=== PATIENT | male | born 1990 | race African-American/Black ===

== ENCOUNTER 2018-10-04 16:57 | Day surgery (SDC) | payer OTHER ==
[2018-10-04] MEDS ORDERED: NORMAL SALINE 1000 ML 1,000 ML IV ONE (17:42)
--- NOTE | 2018-10-04 17:42 | ER Document Report ---
ED Medical Screen (RME) - General Chief Complaint: Lower Abdominal Pain Stated Complaint: ABDOMINAL PAIN Time Seen by Provider: 10/04/18 17:39 Mode of Arrival: Ambulatory Information source: Patient Notes: 27-year-old male presented to ED for right lower quadrant tenderness with rebound tenderness. He is nauseated no vomiting no fever. When I assessed him in the emergency room his temperature is 99.8. He states he has not eaten since last night due to the pain. Patient denies any smoking drinking or any drugs. He is alert oriented respirations regular and unlabored. I have greeted and performed a rapid initial assessment of this patient. A comprehensive ED assessment and evaluation of the patient, analysis of test results and completion of medical decision making process will be conducted by an additional ED providers. Dictation of this chart was performed using voice recognition software; therefore, there may be some unintended grammatical errors. TRAVEL OUTSIDE OF THE [place] IN LAST 30 DAYS: No - Related Data Allergies/Adverse Reactions: No Known Allergies Allergy (Verified 10/04/18 17:26)
[2018-10-04 18:23] LABS: APPEARANCE,URINE CLEAR; BILIRUBIN,URINE NEGATIVE (NEGATIVE); COLOR,URINE YELLOW; GLUCOSE, URINE NEGATIVE (NEGATIVE); KETONES,URINE NEGATIVE (NEGATIVE); LEUKOCYTE ESTERASE,URINE NEGATIVE (NEGATIVE); NITRITE,URINE NEGATIVE (NEGATIVE); PROTEIN,URINE NEGATIVE (NEGATIVE); URINE SPECIFIC GRAVITY 1.021; UROBILINOGEN,URINE NEGATIVE mg/dL (<2.0)
[2018-10-04 18:36] LABS: ABSOLUTE LYMPHOCYTES (AUTO) 1.2 10^3/uL (0.5-4.7); ABSOLUTE NEUT (AUTO) 7.9 10^3/uL (1.7-8.2); BASOPHILS % (AUTO) 0.2 % (0-2); EOSINOPHILS % (AUTO) 0.4 % (0-6); HEMATOCRIT 41.9 % (37.9-51.0); HEMOGLOBIN 13.6 g/dL (13.5-17.0); LYMPHOCYTES % (AUTO) 12.2 % (13-45); MEAN CORPUSCULAR HEMOGLOBIN 26.6 pg (27.0-33.4); MEAN CORPUSCULAR HGB CONC 32.4 g/dL (32.0-36.0); MEAN CORPUSCULAR VOLUME 82 fl (80-97); MONOCYTES % (AUTO) 9.9 % (3-13); PLATELET COUNT 259 10^3/uL (150-450); RED CELL DISTRIBUTION WIDTH 13.8 % (11.5-14.0); SEGMENTED NEUTROPHILS % (AUTO) 77.3 % (42-78); TOTAL CELLS COUNTED % (AUTO) 100 %; WHITE BLOOD COUNT 10.2 10^3/uL (4.0-10.5)
[2018-10-04 19:06] LABS: ALANINE AMINOTRANSFERASE 23 U/L (21-72); ALBUMIN 5.3 g/dL (3.5-5.0); ALKALINE PHOSPHATASE 65 U/L (38-126); ANION GAP 14 (5-19); ASPARTATE AMINO TRANSFERASE 21 U/L (17-59); BILIRUBIN,DIRECT 0.3 mg/dL (0.0-0.4); BILIRUBIN,TOTAL 0.9 mg/dL (0.2-1.3); BLOOD UREA NITROGEN 11 mg/dL (7-20); CALCIUM 10.5 mg/dL (8.4-10.2); CARBON DIOXIDE 25 mmol/L (22-30); CHLORIDE 103 mmol/L (98-107); GLUCOSE 84 mg/dL (75-110); POTASSIUM 4.3 mmol/L (3.6-5.0); SODIUM 141.8 mmol/L (137-145); TOTAL PROTEIN 8.7 g/dL (6.3-8.2)
--- NOTE | 2018-10-04 19:46 | ER Document Report ---
ED General - General Chief Complaint: Lower Abdominal Pain Stated Complaint: ABDOMINAL PAIN Time Seen by Provider: 10/04/18 17:39 Mode of Arrival: Ambulatory Notes: Patient is a 27-year-old male, previously healthy that presents to the emergency department for chief complaint of right lower quadrant abdominal pain. Patient reports that his pain started earlier this morning, and progressed throughout the course of the day, try to go to work but at around noon he had to leave because of the pain. He said associated nausea but no vomiting. He currently rates his pain as a 6 out of 10 describes it as a sharp stabbing pain in his right lower quadrant. He states is worse with any movement. He denies having any fevers, chills, night sweats, chest pain, shortness of breath or difficulty breathing. Denies any dysuria or hematuria. Past Medical History: Denies chronic medical conditions Past Surgical History: Denies surgical history Social History: Denies tobacco use, admits to occasional alcohol use, denies illicit drug use. Family History: Reviewed and noncontributory for presenting illness Allergies: Reviewed, see documented allergy list. REVIEW OF SYSTEMS: Other than noted above, the 12 point review of systems was reviewed with the patient and were negative, all pertinent findings are included in the HPI. PHYSICAL EXAMINATION: Vital signs reviewed, nursing noted reviewed. GENERAL: Patient appears uncomfortable on exam, but in no acute distress HEAD: Atraumatic, normocephalic. EYES: Eyes appear normal, extraocular movements intact, sclera anicteric, conjunctiva are normal. ENT: nares patent, oropharynx clear without exudates. Moist mucous membranes. NECK: Normal range of motion, supple without lymphadenopathy LUNGS: Breath sounds clear to auscultation bilaterally and equal. No wheezes rales or rhonchi. HEART: Regular rate and rhythm without murmurs ABDOMEN: Soft, right lower quadrant tenderness palpation, without rigidity, however the patient does have rebound tenderness, normoactive bowel sounds. No distention noted. EXTREMITIES: Nontender, good range of motion, no pitting or edema. NEUROLOGICAL: No focal neurological deficits. Moves all extremities spontaneou sly Motor and sensory grossly intact on exam. PSYCH: Normal mood, normal affect. SKIN: Warm, Dry, normal turgor, no rashes or lesions noted on exposed skin TRAVEL OUTSIDE OF THE [place] IN LAST 30 DAYS: No - Related Data Allergies/Adverse Reactions: No Known Allergies Allergy (Verified 10/04/18 17:26) Past Medical History - General Information source: Patient - Social History Smoking Status: Never Smoker Chew tobacco use (# tins/day): No Frequency of alcohol use: None Drug Abuse: None Family History: Reviewed & Not Pertinent Patient has suicidal ideation: No Patient has homicidal ideation: No Renal/ Medical History: Denies: Hx Peritoneal Dialysis Physical Exam - Vital signs Vitals: Temp Pulse Resp BP Pulse Ox 99.8 F 80 16 116/62 100 10/04/18 17:37 10/04/18 17:37 10/04/18 17:37 10/04/18 17:37 10/04/18 17:37 Course - Re-evaluation Re-evalutation: Patient seen and examined vital signs reviewed. Laboratory data and imaging were ordered as appropriate for the patient's pre senting symptoms and complaint, with consideration of any critical or life threatening conditions that may be associated with their obtained history and exam as noted above. Patient was treated with IV fluids, Zofran, morphine, and started on IV Zosyn after reviewing CT scan that demonstrated acute appendicitis. Blood work was reviewed and essentially unremarkable, patient was given IV fluids. The patient was re-evaluated and was stable Evaluation was most consistent with acute appendicitis, call was placed to the surgeon, he was currently in the OR, discussed with the OR nurse, and I am w aiting for callback to discuss the case with Dr. Perez. Discussed case with the surgeon, he wished to have the patient started on IV Levaquin, and Flagyl, and will take the patient to the OR after he finishes his next case. Results were discussed with the patient at this point after careful conside ration I feel that that patient should be admitted to the hospital. This was discussed with the patient that it is in the best interest for their care to be admitted for further evaluation and management. Patient agreed with this plan of care. A call was placed to the admitted physician, Dr. Perez who graciously accepted the patient onto their service. *Note is created using voice recognition software and may contain spelling, syntax or grammatical errors. Laboratory 10/04/18 10/04/18 10/04/18 17:45 17:52 17:52 WBC 10.2 RBC 5.10 Hgb 13.6 Hct 41.9 MCV 82 MCH 26.6 L MCHC 32.4 RDW 13.8 Plt Count 259 Seg Neutrophils % 77.3 Lymphocytes % 12.2 L Monocytes % 9.9 Eosinophils % 0.4 Basophils % 0.2 Absolute Neutrophils 7.9 Absolute Lymphocytes 1.2 Absolute Monocytes 1.0 Absolute Eosinophils 0.0 Absolute Basophils 0.0 Sodium 141.8 Potassium 4.3 Chloride 103 Carbon Dioxide 25 Anion Gap 14 BUN 11 Creatinine 0.86 Est GFR ( Amer) > 60 Est GFR (Non-Af Amer) > 60 Glucose 84 Calcium 10.5 H Total Bilirubin 0.9 Direct Bilirubin 0.3 Neonat Total Bilirubin Not Reportable Neonat Direct Bilirubin Not Reportable Neonat Indirect Bili Not Reportable AST 21 ALT 23 Alkaline Phosphatase 65 Total Protein 8.7 H Albumin 5.3 H Urine Color YELLOW Urine Appearance CLEAR Urine pH 6.0 Ur Specific [place] 1.021 Urine Protein NEGATIVE Urine Glucose (UA) NEGATIVE Urine Ketones NEGATIVE Urine Blood NEGATIVE Urine Nitrite NEGATIVE Urine Bilirubin NEGATIVE Urine Urobilinogen NEGATIVE Ur Leukocyte Esterase NEGATIVE Urine RBC (Auto) 0 Squamous Epi Cells Auto <1 Urine Mucus (Auto) RARE Urine Ascorbic Acid NEGATIVE Abdomen/Pelvis CT 10/04/18 17:42 IMPRESSION: Appendicitis. There is no abscess. - Vital Signs Vital signs: Temp Pulse Resp BP Pulse Ox 99.8 F 80 16 116/62 100 10/04/18 17:37 10/04/18 17:37 10/04/18 17:37 10/04/18 17:37 10/04/18 17:37 - Laboratory Result Diagrams: 10/04/18 17:52 10/04/18 17:52 Laboratory results interpreted by me: 10/04/18 10/04/18 17:52 17:52 MCH 26.6 L Lymphocytes % 12.2 L Calcium 10.5 H Total Protein 8.7 H Albumin 5.3 H Discharge - Discharge Clinical Impression: Acute appendicitis Qualifiers: Acute appendicitis type: with localized peritonitis Appendicitis gangrene presence: unspecified whether gangrene present Appendicitis perforation presence: without perforation Appendicitis abscess presence: without abscess Qualified Code(s): K35.30 - Acute appendicitis with localized peritonitis, without perforation or gangrene Condition: Stable Disposition: ADMITTED INPATIENT Admitting Provider: Surgicalist - Dr. Perez Unit Admitted: OR
[2018-10-04] MEDS ORDERED: PIPERACILLIN/TAZOBACTAM 3.375 GM VIAL IV ONE (19:52)
[2018-10-04] MEDS ORDERED: RINGERS SOLUTION,LACTATED 1,000 ML IV ONE (19:53)
[2018-10-04] MEDS ORDERED: MORPHINE SULFATE 10 MG/ML INJ IV ONE (19:53)
[2018-10-04] MEDS ORDERED: ONDANSETRON HCL INJ/PF 4 MG/2 ML SDV IV ONE (19:53)
--- NOTE | 2018-10-04 20:10 | RADIOLOGY REPORT (SQ) ---
EXAM DESCRIPTION: CT ABD/PELVIS WITH IV ONLY COMPLETED DATE/TIME: 10/04/2018 7:32 pm REASON FOR STUDY: rlq abdominal pain with rebound tenderness COMPARISON: None. TECHNIQUE: CT scan of the abdomen and pelvis performed using helical scanning technique with dynamic intravenous contrast injection. No oral contrast. Images reviewed with lung, soft tissue, and bone windows. Reconstructed coronal and sagittal MPR images reviewed. Delayed images for evaluation of the urinary system also acquired. All images stored on PACS. All CT scanners at this facility use dose modulation, iterative reconstruction, and/or weight based d osing when appropriate to reduce radiation dose to as low as reasonably achievable (ALARA). [facility]: Dose Right [facility]: CareDose [facility]: Dose Right [facility]: Teradose 4D [facility]: Ticket Cake CONTRAST TYPE AND DOSE: contrast/concentration: Isovue 350.00 mg/ml; Total Contrast Delivered: 100.0 ml; Total Saline Delivered: 72.0 ml RENAL FUNCTION: None required. The patient is less than 50 years old. RADIATION DOSE: CT Rad equipment meets quality standard of care and radiation dose reduction techniq ues were employed. CTDIvol: 12.8 - 16.6 mGy. DLP: 1539 mGy-cm.. LIMITATIONS: None. FINDINGS: LOWER CHEST: No significant findings. No nodules or infiltrates. LIVER: Normal size. No masses. No dilated ducts. SPLEEN: Normal size. No focal lesions. PANCREAS: No masses. No significant calcifications. No adjacent inflammation or peripancreatic fluid collections. Pancreatic duct not dilated. GALLBLADDER: No identified stones by CT criteria. No inflammatory changes to suggest cholecystitis. ADRENAL GLANDS: No significant masses or asymmetry. RIGHT KIDNEY AND URETER: No solid masses. No significant calcifications. No hydronephrosis or hyd roureter. LEFT KIDNEY AND URETER: No solid masses. No significant calcifications. No hydronephrosis or hydr oureter. AORTA AND VESSELS: No aneurysm. No dissection. Renal arteries, SMA, celiac without stenosis. RETROPERITONEUM: No retroperitoneal adenopathy, hemorrhage or masses. BOWEL AND PERITONEAL CAVITY: No masses or inflammatory changes. No free fluid or peritoneal masses. APPENDIX: There is thickening of the appendix and serafin appendiceal stranding. No abscess is present. PELVIS: No mass. No free fluid. Normal bladder. ABDOMINAL WALL: No masses. No hernias. BONES: No significant or acute findings. OTHER: No other significant finding. IMPRESSION: Appendicitis. There is no abscess. TECHNICAL DOCUMENTATION: JOB ID: [id number] Quality ID # [id number]: Final reports with documentation of one or more dose reduction techniques (e.g., Au tomated exposure control, adjustment of the mA and/or kV according to patient size, use of iterative reconstruction technique) 2010 [employer]- All Rights Reserved Reading location - IP/workstation name: [email or web address]
[2018-10-04] MEDS ORDERED: LEVOFLOXACIN 750 MG/D5W RTU 750 MG/150 ML RTUPB IV ONE (21:27)
--- NOTE | 2018-10-04 21:31 | PDOC H&P ---
History of Present Illness Patient complains of: Abdominal pain History of Present Illness: WCIHO RODRIGEZ is a 27 year old male in usual state of excellent health until this morning when he awoke with epigastric abdominal discomfort that gradually localized to the right lower quadrant with increased severity of pain with associated nausea. No fever. No diarrhea. No emesis. Patient notes that the pain is worsened with activity. He does not have anorexia however. Past Medical History Medical History: None Past Surgical History Past Surgical History: Reports: None Social History Smoking Status: Never Smoker Frequency of Alcohol Use: Rare Hx Recreational Drug Use: No Family History Family History: Reviewed & Not Pertinent Parental Family History Reviewed: Yes Children Family History Reviewed: Yes Sibling(s) Family History Reviewed.: Yes Medication/Allergy Home Medications: No Home Medications 10/04/18 Allergies/Adverse Reactions: No Known Allergies Allergy (Verified 10/04/18 17:26) Physical Exam Vital Signs: Temp Pulse Resp BP Pulse Ox 99.8 F 80 16 116/62 100 10/04/18 17:37 10/04/18 17:37 10/04/18 17:37 10/04/18 17:37 10/04/18 17:37 Intake & Output 10/03/18 10/04/18 10/05/18 06:59 06:59 06:59 Intake Total 1000 Balance 1000 Weight 107.5 kg General appearance: PRESENT: no acute distress, cooperative Eye exam: PRESENT: conjunctiva pink Neck exam: PRESENT: other - Supple with no tenderness and no masses Respiratory exam: PRESENT: clear to auscultation daniela Cardiovascular exam: PRESENT: RRR GI/Abdominal exam: PRESENT: other - Soft, tender in the right lower quadrant wit h guarding Extremities exam: PRESENT: other - No swelling and no tenderness Neurological exam: PRESENT: alert, awake Skin exam: PRESENT: warm Results Laboratory Results: 10/04/18 17:52 10/04/18 17:52 10/04/18 10/04/18 10/04/18 17:45 17:52 17:52 WBC 10.2 RBC 5.10 Hgb 13.6 Hct 41.9 MCV 82 MCH 26.6 L MCHC 32.4 RDW 13.8 Plt Count 259 Seg Neutrophils % 77.3 Lymphocytes % 12.2 L Monocytes % 9.9 Eosinophils % 0.4 Basophils % 0.2 Absolute Neutrophils 7.9 Absolute Lymphocytes 1.2 Absolute Monocytes 1.0 Absolute Eosinophils 0.0 Absolute Basophils 0.0 Sodium 141.8 Potassium 4.3 Chloride 103 Carbon Dioxide 25 Anion Gap 14 BUN 11 Creatinine 0.86 Est GFR ( Amer) > 60 Est GFR (Non-Af Amer) > 60 Glucose 84 Calcium 10.5 H Total Bilirubin 0.9 AST 21 ALT 23 Alkaline Phosphatase 65 Total Protein 8.7 H Albumin 5.3 H Urine Color YELLOW Urine Appearance CLEAR Urine pH 6.0 Ur Specific [place] 1.021 Urine Protein NEGATIVE Urine Glucose (UA) NEGATIVE Urine Ketones NEGATIVE Urine Blood NEGATIVE Urine Nitrite NEGATIVE Ur Leukocyte Esterase NEGATIVE Urine RBC (Auto) 0 Impressions: Abdomen/Pelvis CT 10/04/18 17:42 IMPRESSION: Appendicitis. There is no abscess. Assessment & Plan - Diagnosis (1) Acute appendicitis Qualifiers: Acute appendicitis type: with localized peritonitis Appendicitis gangrene presence: unspecified whether gangrene present Appendicitis perforation presence: without perforation Appendicitis abscess presence: without abscess Qualified Code(s): K35.30 - Acute appendicitis with localized peritonitis, without perforation or gangrene Is this a current diagnosis for this admission?: Yes Plan: Plan laparoscopic appendectomy, possible open appendectomy. I have discussed with the patient the risk and benefits of the procedure including risk of infection, bleeding, mistaken diagnosis, conversion to a open surgery, stump leak, possible requirement for partial colon resection. Patient understands and agrees to proceed. He also understands that if the appendix does look normal I will most likely still proceed with an appendectomy and also do a expiratory laparoscopy.
[2018-10-04] MEDS ORDERED: METRONIDAZOLE 500 MG/NS RTU 500 MG/100 ML RTUPB IV ONE (22:30)
[2018-10-04] MEDS ORDERED: FENTANYL CITRATE INJ/PF 100 MCG/2 ML AMPUL ONE (22:59)
[2018-10-04] MEDS ORDERED: ONDANSETRON HCL INJ/PF 4 MG/2 ML SDV ONE (22:59)
[2018-10-04] MEDS ORDERED: MIDAZOLAM 2 MG/2 ML INJ ONE (22:59)
[2018-10-04] MEDS ORDERED: HYDROMORPHONE HCL INJ/PF 2 MG/ML AMPULE ONE (22:59)
[2018-10-04] MEDS ORDERED: PROPOFOL INJ 200 MG/20 ML VIAL IV ONE (22:59)
[2018-10-04] MEDS ORDERED: BUPIVACAINE HCL 0.25 % INJ/PF (2.5 MG/1 ML) 30 ML VIAL ONE (23:28)
[2018-10-04] MEDS ORDERED: DIPHENHYDRAMINE HCL 50 MG/ML VIAL IV PRN (23:50)
[2018-10-04] MEDS ORDERED: FENTANYL CITRATE INJ/PF 100 MCG/2 ML AMPUL IV PRN ×3 (23:50)
[2018-10-04] MEDS ORDERED: PROMETHAZINE HCL INJ 25 MG/1 ML VIAL IV PRN (23:50)
[2018-10-04] MEDS ORDERED: MEPERIDINE HCL/PF INJ 25 MG/1 ML DISP.SYRIN IV PRN (23:50)
--- NOTE | 2018-10-05 01:10 | Operative Report ---
Operative Report DATE OF SURGERY: 10/05/18 PREOPERATIVE DIAGNOSIS: Appendicitis POSTOPERATIVE DIAGNOSIS: Appendicitis OPERATION: Laparoscopic appendectomy SURGEON: JENIFFER MARTIN ANESTHESIA: GA TISSUE REMOVED OR ALTERED: Appendix COMPLICATIONS: None ESTIMATED BLOOD LOSS: Minimal INTRAOPERATIVE FINDINGS: Markedly thickened inflamed but not perforated appendix. Some serous fluid in the peritoneal cavity. PROCEDURE: Informed consent was obtained. Patient was brought to the operating room placed on the operating room table in the supine position. After satisfactory induction of general anesthesia patient's abdomen was prepped and draped in usual sterile fashion. A supraumbilical midline incision was made dissection carried down through the fascia and the peritoneal cavity was entered. Delarosa trocar was inserted and pneumoperitoneum produced with good patient toleration. A 5 mm trocar was placed in the right lateral abdomen lateral to the rectus above the level of the umbilicus. Another 5 mm trocar was placed in the left lateral abdomen lateral to the rectus below the level of the umbilicus. Patient was placed in a Trendelenburg position with the right side up. The appendix appeared inflamed distally with inflamed periappendiceal fat but with no evidence of perforation. There was some serous fluid in the periappendiceal region. The peritoneal attachments of the appendix was taken down taking great care to avoid injury to the adjacent cecum. A plane was created between the mesoappendix and the appendix at the base of the appendix. Using a Endo SAMARA stapling device the appendix was taken flush with the cecum. The stump closure appeared secure. The mesoappendix was taken using a vascular load of the Endo SAMARA stapling device. Hemostasis appeared good. The operative field was lightly irrigated and irrigant aspirated out. The appendix was placed in an Endobag and removed through the Delarosa trocar site fascial defect. All trochars were removed under the direct vision of the laparoscope to ensure hemostasis. The Delarosa trocar site fascial defect was closed with interrupted Vicryl sutures. All skin incisions were closed with subcuticular interrupted Monocryl sutures. Marcaine was injected at the operative sites. Patient tolerated procedure well with no apparent complications and was taken to the recovery area in stable condition.
[2018-10-05] MEDS: HYDROMORPHONE HCL INJ/PF 2 MG/ML AMPULE IV PRN ×3 (01:45→08:05)
[2018-10-05] MEDS: NORMAL SALINE 1000 ML 1,000 ML IV PRN ×2 (01:51→11:23)
[2018-10-05] MEDS ORDERED: ROCURONIUM BROMIDE INJ 50 MG/5 ML VIAL IV ONE (12:11)
[2018-10-05] MEDS ORDERED: SUCCINYLCHOLINE CHLORIDE INJ 200 MG/10 ML VIAL ONE (12:11)
[2018-10-05 13:27] VITALS: BP 124/67
--- NOTE | 2018-10-05 14:19 | PDOC DISCHARGE SUMMARY ---
General - Admit/Disc Date/PCP Admission Date/Primary Care Provider: 10/04/18 21:42 Discharge Date: 10/05/18 - Additional Information Resuscitation Status: Full Code Discharge Diet: As Tolerated Discharge Activity: No Lifting Over 10 Pounds Home Medications: No Home Medications 10/04/18 History of Present Illness History of Present Illness: WICHO RODRIGEZ is a 27 year old male admitted for acute appendicitis. He was taken to the operating room for definitive surgical treatment. Hospital Course Hospital Course: Patient was taken to the operating room where laparoscopic appendectomy was successfully performed. The patient was taken to the floor in stable condition. Immediately after surgery, the patient had some difficulty with urination. This resolved with time. By 10/01/2018 the patient was ambulating, urinating, tolerating regular diet, his pain was controlled with oral pain medications, and it was felt that he had reached maximal hospital benefit. At this time the patient is medically fit for discharge. Physical Exam Vital Signs: Temp Pulse Resp BP Pulse Ox 98.2 F 71 16 124/67 99 10/05/18 12:15 10/05/18 12:15 10/05/18 12:15 10/05/18 12:15 10/05/18 12:15 Intake & Output 10/04/18 10/05/18 10/06/18 06:59 06:59 06:59 Intake Total 800 1999 95 Output Total 10 Balance 790 1999 95 Weight 108.2 kg Results Laboratory Results: 10/04/18 17:52 10/04/18 17:52 10/04/18 10/04/18 10/04/18 17:45 17:52 17:52 WBC 10.2 RBC 5.10 Hgb 13.6 Hct 41.9 MCV 82 MCH 26.6 L MCHC 32.4 RDW 13.8 Plt Count 259 Seg Neutrophils % 77.3 Lymphocytes % 12.2 L Monocytes % 9.9 Eosinophils % 0.4 Basophils % 0.2 Absolute Neutrophils 7.9 Absolute Lymphocytes 1.2 Absolute Monocytes 1.0 Absolute Eosinophils 0.0 Absolute Basophils 0.0 Sodium 141.8 Potassium 4.3 Chloride 103 Carbon Dioxide 25 Anion Gap 14 BUN 11 Creatinine 0.86 Est GFR ( Amer) > 60 Est GFR (Non-Af Amer) > 60 Glucose 84 Calcium 10.5 H Total Bilirubin 0.9 AST 21 ALT 23 Alkaline Phosphatase 65 Total Protein 8.7 H Albumin 5.3 H Urine Color YELLOW Urine Appearance CLEAR Urine pH 6.0 Ur Specific [place] 1.021 Urine Protein NEGATIVE Urine Glucose (UA) NEGATIVE Urine Ketones NEGATIVE Urine Blood NEGATIVE Urine Nitrite NEGATIVE Ur Leukocyte Esterase NEGATIVE Urine RBC (Auto) 0 Impressions: Abdomen/Pelvis CT 10/04/18 17:42 IMPRESSION: Appendicitis. There is no abscess. Qualifiers - * PATIENT BEING DISCHARGED WITH ANY OF THE FOLLOWING DIAGNOSIS: No Acute Heart Failure Is this a Heart Failure Patient?: No Plan Discharge Plan: Discharge home. Diet as tolerated. Activity: No lifting greater than 10 pounds x 2 weeks. Okay to shower. Follow-up with [place] [facility] in 7 to 10 days. No tub baths or swimming pools x2 weeks. [place] 10/325 mg p.o. every 6 hours as needed for pain. Ibuprofen 800 mg p.o. 3 times daily with meals. Time Spent: Less than 30 Minutes
== END 2018-10-05 15:40 | disposition home or self-care (01) ==
LOC: ER 16:57 → UNDOADMIN 21:42 → OROUT 21:42 → EH 21:42 → 2N 10-05 01:26 → EH 10-05 01:26 → UNDODISIN 10-05 15:40 → OROUT 10-05 15:40
PROVIDERS: ATTEND Surgery
DX: K35.80 Unspecified acute appendicitis (principal)
CPT/HCPCS: 36415; 85025; 80053; 81001; 88304 ×2; 74177; 44970; J2250; J3490; J2270; J1170 ×2; J0330; J2405; J7030 ×2; J7120; J2704; J1956; J2543; 840; J3010